=== PATIENT | female | born 1990 | race African-American/Black ===

== ENCOUNTER 2016-11-21 16:11 | Emergency (ER) | payer OTHER ==
[~2016-11-21] VITALS: Ht 160 cm; Wt 70.0 kg
[~2016-11-21 16:11] MED LIST: BENZ100 PO; CYCL-36 PO; MOBI7.5T PO; PRED20 PO
[2016-11-21 16:14] VITALS: BP 169/109; PULSE 100; RESP 12; TEMP 98.7; O2SAT 100
[2016-11-21] MEDS ORDERED: KETOROLAC TROMETHAMINE 60 MG/2 ML (IM) VIAL IM ONE (19:15)
[2016-11-21] MEDS ORDERED: ACETAMINOPHEN/CODEINE 300 MG/30 MG TAB PO ONE (19:15)
[2016-11-21] MEDS ORDERED: ORPHENADRINE INJ 60 MG/2 ML AMP IM ONE (19:15)
[2016-11-21] MEDS ORDERED: ONDANSETRON ODT 4 MG TAB PO ONE (19:15)
--- NOTE | 2016-11-21 19:18 | PD ---
HPI Chief Complaint: Back/ Neck Pain or Injury Time Seen by Provider: 19:05 Travel History International Travel<30 days: No Contact w/Intl Traveler<30days: No Traveled to known affect area: No History of Present Illness HPI This patient was examined in the presence of a female nurse. 26-year-old female presents for evaluation of right-sided lower back pain. Symptoms started 8 years ago when she sustained an injury while in the [employer]. Over the past 6 months the pain is gone worse. The pain is an aching pain in the right lower back region that radiates down the right leg to the foot. Pain is worse with movement. Occasionally she has exacerbations of this pain and today the pain was worse which prompted evaluation. She is currently prescribed salsalate which helps with her symptoms some. She denies any acute injury. She denies any bowel or bladder incontinence, saddle anesthesia, flank pain, fevers or chills, IV drug use, abdominal pain, nausea, vomiting. She reports that she received an MRI of the lower back 3 months ago which showed "bulging disks" and she currently sees physical therapy. Her primary care physician is at the [facility]. No other complaints. PFSH Past Medical History Asthma: Yes Blood Disorders: No Bipolar Disorder: Yes Anxiety: Yes Depression: Yes Cancer: No Endocrine: No Genitourinary: No Headaches: Yes Insomnia: Yes Neurologic: Yes (TRAUMATIC BRAIN INJURY IN SERVICE 2007) Psychiatric: Yes (PTSD) Reproductive: No Respiratory: Yes (ASTHMA) Immunizations Current: Yes Tetanus Vaccination: Unknown Influenza Vaccination: Yes ?: Not Ovarian Cysts: Yes Past Surgical History Appendectomy: Yes Social History Alcohol Use: No Tobacco Use: Yes (6 CIGS A DAY) Substance Use: No Allergies-Medications (Allergen,Severity, Reaction): Coded Allergies: Hydroxyzine (Unverified Allergy, Severe, 11/21/16) HIVES Penicillin (Verified Allergy, Severe, 11/21/16) Reported Meds & Prescriptions Reported Meds & Active Scripts Active Tylenol-Codeine #3 (Acetaminophen-Codeine) 300-30 mg Tab 1-2 Tab PO Q6H PRN Reported [Unknown] Review of Systems Except as stated in HPI: all other systems reviewed are Neg Physical Exam Narrative GENERAL: Well-developed well-nourished female in no acute distress SKIN: Warm and dry. HEAD: Atraumatic. Normocephalic. EYES: Pupils equal and round. No scleral icterus. No injection or drainage. CARDIOVASCULAR: Regular rate and rhythm. No murmur appreciated. RESPIRATORY: No accessory muscle use. Clear to auscultation. Breath sounds equal bilaterally. GASTROINTESTINAL: Abdomen soft, non-tender, nondistended. Hepatic and splenic margins not palpable. MUSCULOSKELETAL: No obvious deformities. Right-sided positive straight leg raise test. Full muscle strength in lower extremities. There is some tenderness to palpation to the right sacroiliac joint musculature without bony deformity. No lower extremity edema. Negative Homans. Distal pulses are intact. No CVA tenderness. NEUROLOGICAL: Awake and alert. No obvious cranial nerve deficits. Motor grossly within normal limits. Normal speech. Data Data Last Documented VS Vital Signs Date Time Temp Pulse Resp B/P Pulse Ox O2 Delivery O2 Flow Rate FiO2 11/21/16 16:14 98.7 100 12 169/109 100 Room Air Orders Ketorolac Inj (Toradol Inj) (11/21/16 19:15) Orphenadrine Inj (Norflex Inj) (11/21/16 19:15) Acetamin-Codeine 300-30 Mg (Tylenol-Code (11/21/16 19:15) Ondansetron Odt (Zofran Odt) (11/21/16 19:15) MDM Medical Decision Making Medical Screen Exam Complete: Yes Emergency Medical Condition: Yes Medical Record Reviewed: Yes Differential Diagnosis Herniated nucleus pulposus, piriformis syndrome, muscle spasm, spinal stenosis, cauda equina syndrome, DVT, intermittent claudication, peripheral neuropathy Narrative Course 26-year-old female with known herniated disks in the lower back with sciatic symptoms for several months presents with an exacerbation of her right-sided lower back and radiates down the right leg. She has no lower extremity weakness or symptoms to suggest a cauda equina syndrome. Plan is to treat her symptomatically. She will be given Toradol, Norflex and Tylenol with codeine here in the ED and discharged with Tylenol with codeine prescription. She is encouraged to follow-up with her primary care physician. Diagnosis Primary Impression: Lumbosacral radiculopathy Additional Instructions: Medication as needed. Avoid strenuous activity. Follow-up with primary care physician. Return for any emergent medical conditions. Med/Other Pt SpecificInfo: Prescription(s) given Scripts Acetaminophen-Codeine (Tylenol-Codeine #3)300-30 mg Tab1-2 Tab PO Q6H PRN (PAIN ) #20 TAB Ref 0 Prov:Destinee Vargas MD 11/21/16 Disposition: 01 DISCHARGE HOME Condition: Stable Víctor Kennedy Nov 21, 2016 19:18
[2016-11-21] MEDS ORDERED: TYLETAB34 PO (19:32)
== END 2016-11-21 20:41 | disposition home or self-care (01) ==
LOC: NEPB 16:11
DX: M54.17 Radiculopathy, lumbosacral region (principal); Z87.828 Personal history of other (healed) physical injury and trauma
CPT/HCPCS: 96372; 99283; J1885; J2360

== ENCOUNTER 2018-01-13 23:49 | Emergency (ER) | payer OTHER ==
[~2018-01-13] VITALS: Ht 162.6 cm; Wt 70.0 kg
[~2018-01-13 23:49] MED LIST changes: -BENZ100 PO; -CYCL-36 PO; -MOBI7.5T PO; -PRED20 PO; +TYLETAB34 PO
[2018-01-14 00:26] VITALS: BP 185/113; PULSE 118; RESP 18; TEMP 98.9; O2SAT 99
== END 2018-01-14 02:17 | disposition left against medical advice (07) ==
LOC: NED 23:49
DX: Z53.21 Procedure and treatment not carried out due to patient leaving prior to being seen by health care provider (principal)
CPT/HCPCS: 99281